=== PATIENT | female | born 1970 | race Caucasian/White ===

== ENCOUNTER → 2016-12-14 | Outpatient (CLI) | payer OTHER | LOC: BMCIMAGING 08:48 | PROVIDERS: ATTEND Physician Assistant Medical | DX: Z12.31 Encounter for screening mammogram for malignant neoplasm of breast (principal) | CPT/HCPCS: G0202 ==

== ENCOUNTER → 2018-02-20 | Outpatient (CLI) | payer OTHER | LOC: BRMIMAGING 13:12 | PROVIDERS: ATTEND Physician Assistant Medical | DX: Z12.31 Encounter for screening mammogram for malignant neoplasm of breast (principal) ==

== ENCOUNTER 2018-05-15 18:43 | Emergency (ER) | payer OTHER ==
--- NOTE | 2018-05-15 19:21 | EDPHY ---
H & P Time Seen by Provider: 05/15/18 19:13 HPI/ROS: CHIEF COMPLAINT: Twisted ankle HISTORY OF PRESENT ILLNESS: 47-year-old female presents to the emergency department after twisting her left ankle just prior to arrival. She was walking in a parking lot and stumbled into a hole. She did not fall. No trauma to her head, chest, torso, upper extremities, or right lower extremity. Patient immediately had pain, swelling, and was unable to ambulate. She was otherwise well prior to this event. REVIEW OF SYSTEMS: A comprehensive 10 system review of systems was reviewed and is otherwise negative aside from elements mentioned in the history of present illness and medical decision making. PAST MEDICAL HISTORY: Hypertension, hyperlipidemia, GERD. She also reports "weak ankles". No history of definitive fractures or sprains of this ankle. SOCIAL HISTORY: Here with her . GENERAL APPEARANCE: Pleasant, alert, moderate distress secondary to pain. FOCUSED EXAM OF left lower extremity: No deformity at the knee. No tenderness over the proximal fibula. No tenderness over the tib-fib. Patient has moderate swelling over the lateral malleoli with tenderness at the tip of the lateral malleoli and over the ligaments. No tenderness at the head of the 5th metatarsal. No tenderness elicited across the dorsum of the ankle. No tenderness on the medial malleoli. Neurovascular exam: Good capillary refill, normal neurologic exam. Smoking Status: Former smoker Constitutional: Initial Vital Signs Temperature (C) 36.5 C 05/15/18 19:01 Heart Rate 82 05/15/18 19:01 Respiratory Rate 20 05/15/18 19:01 Blood Pressure 158/118 H 05/15/18 19:01 O2 Sat (%) 94 05/15/18 19:01 O2 Delivery Mode Room Air Allergies/Adverse Reactions: codeine [Codeine] Allergy (Verified 05/17/12 13:15) UNABLE TO SLEEP Penicillins Allergy (Verified 05/17/12 13:15) SWELLING/ITCH Home Medications: Medication Instructions Recorded Albuterol Hfa Anes Only [Proair 2 puffs IH QID PRN #1 mdi 08/17/15 Hfa Anes Only] Atacand Hct 16-12.5 mg Tab 08/17/15 PRILOSEC 08/17/15 Medical Decision Making - Diagnostics Imaging Results: Left Ankle: Impression: 1. Focal chip or avulsion fracture along the anterior margin of the distal tibia at the ankle joint level 2. Soft tissue swelling laterally compatible with ankle sprain. Dictated By: Rashawn Nova MD ED Course/Re-evaluation: 47-year-old female with a mechanical twist of her left ankle. She had immediate pain, swelling, is unable to ambulate. She has pain along the lateral malleoli. X-ray was obtained demonstrating a small chip fracture off of the anterior tib as well as signs of swelling over the lateral malleoli consistent with an ankle sprain. Patient was placed in a boot orthosis. She was advised not to weightbear until she is seen by Orthopedic surgery. Please see the discharge instructions Differential Diagnosis: Differential diagnosis for the patient's injury was considered including but not limited to contusion, abrasion, laceration, fracture, open fracture, or dislocation. - Data Points Medications Given: Discontinued Medications Hydrocodone Bitart/Acetaminophen ([place] 5/325mg Prepack#6) 1 btl TAKEHOME EDNOW ONE Stop: 05/15/18 19:27 Last Admin: 05/15/18 19:48 Dose: 1 btl Departure - Departure Disposition: Home, Routine, Self-Care Clinical Impression: Moderate left ankle sprain Qualifiers: Encounter type: initial encounter Qualified Code(s): S93.402A - Sprain of unspecified ligament of left ankle, initial encounter Avulsion fracture of ankle Qualifiers: Encounter type: initial encounter Fracture type: closed Laterality: left Qualified Code(s): S82.892A - Other fracture of left lower leg, initial encounter for closed fracture Condition: Good Instructions: Hydrocodone/Acetaminophen (By mouth), Ankle Fracture (ED), Ankle Sprain (ED) Additional Instructions: You have a small chip fracture off the anterior portion of your tibia. Please follow up with the orthopedic surgeon as soon as possible. Please call to make an appointment tomorrow. Be sure they are aware that this is an emergency department follow-up visit. Mainstay of therapy is rest, ice, immobilization, elevation, and nonsteroidal anti-inflammatories for pain and to decrease swelling. Apply ice for 20-30 minutes every 2-3 hours for the next 48 hours. I recommend Ibuprofen (Motrin, Advil) or Naproxen Sodium (Aleve) for pain and anti-inflammatory effects. You may take either one, but do not take both. Your dose is: Ibuprofen 600 mg every 6-8 hours with food. OR Naproxen Sodium (Aleve) 220 mg every 12 hours. Wear your boot until you are seen by the orthopedic surgeon. Followup with the orthopedic surgeon as directed. Referrals: Modesta Wolfe PA [Primary Care Provider] - As per Instructions Yolanda Elliott MD [Medical Doctor] - As per Instructions
[2018-05-15] MEDS ORDERED: HYDROCOD/APAP 5/325 PREPACK#6 BTL TAKEHOME ONE (19:26)
[2018-05-15 20:01] VITALS: BP 144/98
== END 2018-05-15 20:00 | disposition home or self-care (01) ==
LOC: CED 18:43
DX: S82.892A Other fracture of left lower leg, initial encounter for closed fracture (principal); S93.402A Sprain of unspecified ligament of left ankle, initial encounter; I10 Essential (primary) hypertension; E78.5 Hyperlipidemia, unspecified; K21.9 Gastro-esophageal reflux disease without esophagitis; X50.1XXA Overexertion from prolonged static or awkward postures, initial encounter; Y92.481 Parking lot as the place of occurrence of the external cause; Y93.01 Activity, walking, marching and hiking; Y99.9 Unspecified external cause status; Z87.891 Personal history of nicotine dependence
CPT/HCPCS: 73610-PO; 99283-ER; L4386-ER

== ENCOUNTER 2018-06-06 08:59 | Emergency (ER) | payer OTHER ==
[2018-06-06] MEDS ORDERED: NS 1,000 ML IV ONE (09:16)
--- NOTE | 2018-06-06 09:52 | EDPHY ---
H & P Stated Complaint: States yest am left lower abd pain with loose stools, increased pain Time Seen by Provider: 06/06/18 09:08 HPI/ROS: CHIEF COMPLAINT: Left lower quadrant pain History by patient HISTORY OF PRESENT ILLNESS: 47-year-old woman with history of hypertension high cholesterol presents complaining of acute onset left lower quadrant pain which began yesterday morning. She thought it would be relieved by mouth movement but it was not. She had 2 loose but non diarrhea stools yesterday. She denies any fever. Pain is worse when she moves around or changes position. It began somewhat in her back but is now localized to her left lower quadrant. Sinuses with any dysuria, urgency frequency or hematuria. This morning she felt she needed to have a bowel movement when she went to the bathroom all she passed was bright red blood. She has a history of hemorrhoids. She has been able to eat and this is not make the pain worse. She denies any nausea or vomiting. She has never had anything like this before. She denies any dizziness, lightheadedness, syncope, chest pain or shortness of breath. REVIEW OF SYSTEMS: As in HPI, and all other systems reviewed and are negative - Personal History LMP (Females 10-55): Unknown - Medical/Surgical History Hx Asthma: No Hx Chronic Respiratory Disease: No Hx Diabetes: No Hx Cardiac Disease: No Hx Renal Disease: No Hx Cirrhosis: No Hx Alcoholism: No Hx HIV/AIDS: No Hx Splenectomy or Spleen Trauma: No Other PMH: HTN/hyperlipidemia/GERD,3. Surg-uterine ablation,hemorrhoidectomy - Social History Smoking Status: Never smoked - Physical Exam Exam: General Appearance: Alert, obese, nontoxic. Eyes: Pupils equal and round, extraocular movements intact, no pallor or injection. Mouth: Mucous membranes moist. Pharynx clear Respiratory: Normal, effort, lungs are clear to auscultation. No wheezes, rales or rhonchi. Cardiovascular: Regular rate and rhythm. S1, S2, no murmurs, gallops or rubs appreciated Gastrointestinal: bowel sounds present, Abdomen is soft and nondistended with marked left lower quadrant tenderness with some guarding, no masses, no percussion tenderness Rectal: Prominent external hemorrhoids without bleeding, brown stool guaiac negative Back: No CVA tenderness, no bony tenderness Neurological: Awake, alert and oriented x 3, no pronator drift, normal gait, no pronator drift Skin: Warm and dry, no rashes. Musculoskeletal: No deformities or tenderness. Extremities: full range of motion, no edema Psychiatric: Patient has normal affect, there is no agitation. Constitutional: Initial Vital Signs Temperature (C) 36.8 C 06/06/18 09:06 Heart Rate 100 06/06/18 09:06 Respiratory Rate 16 06/06/18 09:06 Blood Pressure 138/91 H 06/06/18 09:06 O2 Sat (%) 94 06/06/18 09:06 O2 Delivery Mode Room Air Allergies/Adverse Reactions: codeine [Codeine] Allergy (Verified 06/06/18 09:04) UNABLE TO SLEEP Penicillins Allergy (Verified 06/06/18 09:04) SWELLING/ITCH Home Medications: Medication Instructions Recorded Albuterol Hfa Anes Only [Proair 2 puffs IH QID PRN #1 mdi 08/17/15 Hfa Anes Only] Atacand Hct 16-12.5 mg Tab 08/17/15 PRILOSEC 08/17/15 Atorvastatin Calcium 06/06/18 Vitamin D2 06/06/18 levOFLOXACIN [levAQUIN (*)] 500 mg PO DAILY #10 tab 06/06/18 Medical Decision Making - Diagnostics Imaging Results: Imaging Impressions Abdomen CT 06/06/18 09:50 Impression: 1. Diverticulitis at the rectosigmoid junction without evidence of abscess. 2. Septated right adnexal cystic lesion may represent benign cyst, however pelvic ultrasound is recommended for further evaluation. 3. Diffuse heterogeneity and multiloculated fluid in the lower uterine segment, this may correspond to post surgical changes from the patient's reported history of uterine ablation. Correlation with timing of surgery is recommended, and pelvic ultrasound may be useful as clinically warranted. Fco Judd was notified of these findings by telephone at 10:57 AM on 06/06/2018 ED Course/Re-evaluation: 47-year-old woman presents with left lower quadrant pain and tenderness. Patient declined pain medication. I was concerned about diverticulitis. There is no evidence of acute GI bleed. CBC showed elevated white blood cell count but hemoglobin within normal limits. Chemistries are unremarkable. Urinalysis showed no evidence of infection. CT of the abdomen pelvis was obtained. CT revealed uncomplicated diverticulitis. I suspect the bleeding the patient and this morning was related to her melquiades and external hemorrhoids. Here she is hemodynamically stable and only mildly symptomatic. We will treat her as an outpatient with oral antibiotics. She is allergic to penicillins which cause anaphylaxis and Bactrim interact with her Shree inhibitors so she will be treated with Levaquin. I recommend he recheck with her primary care physician 2-3 days and sooner in the ER if she gets worse in any way including but not limited to fever, inability to take medicines, increased pain. We discussed ongoing care including 24 liquid diet, high-fiber diet, and follow-up colonoscopy. - Data Points Laboratory Results: 06/06/18 09:44 POC Sodium 140 mEq/L mEq/L (135-145) POC Potassium 4.0 mEq/L mEq/L (3.3-5.0) POC Chloride 106.0 mEq/L mEq/L (97-110) POC Total CO2 25 mEq/L mEq/L (22-31) POC BUN 7 mg/dL mg/dL (7-23) POC Creatinine 0.5 mg/dL L mg/dL (0.6-1.0) POC Glucose 110 mg/dL H mg/dL (70-100) POC Calcium 9.4 mg/dL mg/dL (8.5-10.4) POC Total Bilirubin 1.1 mg/dL mg/dL (0.1-1.4) POC AST 19 IU/L IU/L (14-46) POC ALT 17 IU/L IU/L (9-52) POC Alk Phosphatase 74 IU/L IU/L (38-126) POC Total Protein 7.3 g/dL g/dL (6.3-8.2) POC Albumin 3.6 g/dL g/dL (3.5-5.0) Medications Given: Discontinued Medications Acetaminophen (Tylenol) 1,000 mg PO EDNOW ONE Stop: 06/06/18 11:54 Last Admin: 06/06/18 12:11 Dose: Not Given Sodium Chloride (Ns) 1,000 mls @ 0 mls/hr IV EDNOW ONE; Wide Open PRN Reason: Protocol Stop: 06/06/18 09:17 Last Admin: 06/06/18 09:41 Dose: 1,000 mls Point of Care Test Results: CBC CBC Collection Date 03/21/19 CBC Collection Time 09:36 WBC 13.23 RBC 4.67 HGB 13.8 HCT 41.2 PLT 253 Neut # 10.08 Neut 76.1 LYMPH # 1.73 LYMPH 13.1 MCV 88.2 Chemistry 06/06/18 09:44 POC Sodium 140 mEq/L mEq/L (135-145) POC Potassium 4.0 mEq/L mEq/L (3.3-5.0) POC Chloride 106.0 mEq/L mEq/L (97-110) POC Total CO2 25 mEq/L mEq/L (22-31) POC BUN 7 mg/dL mg/dL (7-23) POC Creatinine 0.5 mg/dL L mg/dL (0.6-1.0) POC Glucose 110 mg/dL H mg/dL (70-100) POC Calcium 9.4 mg/dL mg/dL (8.5-10.4) POC Total Bilirubin 1.1 mg/dL mg/dL (0.1-1.4) POC AST 19 IU/L IU/L (14-46) POC ALT 17 IU/L IU/L (9-52) POC Alk Phosphatase 74 IU/L IU/L (38-126) POC Total Protein 7.3 g/dL g/dL (6.3-8.2) POC Albumin 3.6 g/dL g/dL (3.5-5.0) Occult Blood Occult Blood Collection Date 06/06/18 Occult Blood Collection Time 09:50 Occult Blood Result Negative/Negative Urine Dip Collection Date 06/06/18 Collection Time 09:35 Specific [place] (1.002-1.030) 1.015 PH (5.0-7.5) 7.0 Leukocytes (Negative) Negative Nitrites (Negative) Negative Protein (Negative) Negative Glucose (Negative) Negative Ketones (Negative) Negative Urobilnogen (0.2-1.0 EU) 0.2 Bilirubin (Negative) Negative Blood (Negative) Negative Departure - Departure Disposition: Home, Routine, Self-Care Clinical Impression: Diverticulitis large intestine Qualifiers: Diverticulitis bleeding: unspecified bleeding status Diverticulitis complication: without perforation or abscess Qualified Code(s): K57.32 - Diverticulitis of large intestine without perforation or abscess without bleeding Condition: Fair Instructions: Levofloxacin (By mouth), Diverticulitis (ED) Additional Instructions: You were seen by Dr. Abby Kirk today. Take antibiotics as prescribed. I recommend taking probiotics in between doses of antibiotics. You may take Tylenol 500 mg up to 4 times a day as needed for pain. You may take ibuprofen if this is inadequate pain control. You may you you feel like eating although you may prefer to have a liquid diet for the next 24 hr. Please follow up with her primary care provider, Modesta Wolfe in 2 days for recheck and sooner if worse. Once you have completed the course of antibiotics you will need he had a follow-up colonoscopy. Return for any worsening or new concerns. Referrals: Modesta Wolfe PA [Primary Care Provider] - As per Instructions Prescriptions: levOFLOXACIN [levAQUIN (*)] 500 mg PO DAILY #10 tab
[2018-06-06] MEDS ORDERED: IOPAMIDOL (ISOVUE 370) 100 ML BTL IV ONE (10:23)
[2018-06-06] MEDS ORDERED: ACETAMINOPHEN 500 MG TAB PO ONE (11:53)
[2018-06-06 12:21] VITALS: BP 117/80
== END 2018-06-06 12:12 | disposition home or self-care (01) ==
LOC: CED 08:59
DX: K57.32 Diverticulitis of large intestine without perforation or abscess without bleeding (principal); N83.201 Unspecified ovarian cyst, right side; I10 Essential (primary) hypertension; E78.5 Hyperlipidemia, unspecified; E86.9 Volume depletion, unspecified
CPT/HCPCS: 74177-PO; 80053-ER; 85025-QW-ER; 96360-ER; 99285-ER; Q9967

== ENCOUNTER → 2018-07-02 | Outpatient (CLI) | payer OTHER | LOC: EMCIMAGING 12:50 | PROVIDERS: ATTEND Physician Assistant Medical | DX: N83.201 Unspecified ovarian cyst, right side (principal); D25.2 Subserosal leiomyoma of uterus | CPT/HCPCS: 76856-PN ==